=== PATIENT | female | born 1975 | race Caucasian/White ===

== ENCOUNTER → 2020-09-11 | Outpatient (CLI) | payer OTHER ==
--- NOTE | 2020-09-11 14:53 | KCIC ---
EXAM: Chest, 2 views. HISTORY: Long-term medication use. COMPARISON: None. FINDINGS: 2 views of the chest are obtained. There is no infiltrate, pleural effusion or pneumothorax . The heart is normal in size. There are calcified granulomas. IMPRESSION: No acute pulmonary finding. Electronically signed by: Jana Lanza MD (09/11/2020 2:51 PM) [id number]
== END ==
LOC: KCIC 14:25
PROVIDERS: ATTEND Physician Assistant
DX: Z79.899 Other long term (current) drug therapy (principal)
CPT/HCPCS: 71046